=== PATIENT | female | born 1995 | race Caucasian/White ===

== ENCOUNTER 2017-02-28 17:21 | Emergency (ER) | payer OTHER ==
[~2017-02-28] VITALS: Ht 167.6 cm; Wt 53.5 kg
--- NOTE | ~2017-02-28 | US24 ---
[facility]. [facility] A Service of [facility] & [facility] RADIOLOGY TEXT RESULTS PATIENT: LARA PAGE LOCATION: SED : [birth year] UNIT #: [id number] AGE: [address]: Roberto Leon MD SEX: F ORDER DR: [id number] [place] [id number] E MR#: [id number] Acc #: [id number] NAME: LARA PAGE : 1995 SEX: F STUDY DATE/TIME: 02/28/2017 19:01 UNIT: SED ROOM: STUDY DESCRIPTION: US Breast Unilateral Attending Physician: Roberto Leon M.D. Ordering Physician: Meggan Friedman Primary Care Physician: Emi Primary Care Physician MEDICAL IMAGING REPORT This report is preliminary unless electronic signature is present. EXAM Unilateral breast ultrasound 02/28/2017 HISTORY Inflamed area around right nipple breast tissue is red and has hard lump behind nipple x3 days. Green puss and liquid has been coming out of nipple x3 days. Emergency room doctor removed nipple piercings. Patient 12 weeks . FINDINGS Real-time ultrasonography of the right breast performed in the area of palpable abnormality indicated by the patient in the retroareolar region. In the retroareolar region there is a hypoechoic mixed echogenicity collection measuring 2.52 cm x 2.23 cm x 2.24 cm. In the appropriate clinical context, this collection could be consistent with a retroareolar abscess. It does not show internal vascularity. There is some vascularity at its periphery in more normal appearing breast tissue. Please correlate clinically. Followup to complete resolution is recommended. IMPRESSION 1. In the retroareolar right breast in the area of palpable abnormality indicated by the patient there is a hypoechoic collection of overall heterogeneous mixed echogenicity measuring 2.5 cm x 2.3 cm x 2.2 cm. The appearance is nonspecific. Given the patient's history, leading consideration would be retroareolar abscess. Correlate clinically. Followup to complete radiographic resolution strongly recommended. No internal vascularity. There is some peripheral vascularity seen in more normal-appearing breast tissue adjacent to the collection. This might be consistent with a more hyperemic tissue adjacent to abscess collection. STS. [facility] A Service of [facility] & [facility] RADIOLOGY TEXT RESULTS PATIENT: LARA PAGE LOCATION: SED : [birth year] UNIT #: [id number] AGE: [address]: Roberto Leon MD SEX: F ORDER DR: Dictated by... Ramin Rhodes M.D. THIS IS AN ELECTRONICALLY VERIFIED REPORT Ramin Rhodes M.D. at 03/01/2017 2:37 PM GILMA/sue TD: 03/01/2017 05:51 JOB #: [id number] MEDICAL IMAGING REPORT Page 1 of 1
[~2017-02-28 17:21] MED LIST: BACTROBAN15 GM; KEFLEX500 M1 PO; METFORMIN HCL500 M1 PO; PROMETHAZINE D118 ML; ROBITUSSIN A-C S5 ML PO; ZITHROMAX PO
[2017-02-28] MEDS ORDERED: NO MEDICATIONS (17:38)
[2017-02-28] MEDS ORDERED: AMOXICILLIN875 MG PO (21:32)
== END 2017-02-28 21:32 | disposition home or self-care (01) ==
LOC: SED 17:21
DX: S40.811A Abrasion of right upper arm, initial encounter (principal); N61.1 Abscess of the breast and nipple; M25.531 Pain in right wrist; F17.210 Nicotine dependence, cigarettes, uncomplicated; Z23 Encounter for immunization; X58.XXXA Exposure to other specified factors, initial encounter; Y92.89 Other specified places as the place of occurrence of the external cause
CPT/HCPCS: 76641; 90471; 90715; 99283

== ENCOUNTER 2017-03-09 23:38 | Emergency (ER) | payer OTHER ==
[~2017-03-09] VITALS: Ht 167.6 cm; Wt 98.9 kg
[~2017-03-09 23:38] MED LIST changes: +AMOXICILLIN875 MG PO; +NO MEDICATIONS
[2017-03-10 00:22] LABS: URINE SOURCE CLEAN CATCH
[2017-03-10 00:24] LABS: MICRO INDICATED? NO; URINE APPEARANCE CLEAR; URINE BILIRUBIN NEG (NEG); URINE BLOOD NEG (NEG); URINE COLOR YELLOW; URINE GLUCOSE NEG (NORM); URINE KETONE NEG (NEG); URINE LEUKOCYTE ESTERASE NEG (NEG); URINE NITRATE NEG (NEG); URINE PROTEIN NEG (NEG); URINE SPECIFIC GRAVITY >=1.030 (1.003-1.035); URINE UROBILINOGEN 0.2 MG/DL (NORM)
[2017-03-11 21:40] LABS: CHLAMYDIA TRACH Not Detected (Not Detected); N GONOR Not Detected (Not Detected)
== END 2017-03-10 01:49 | disposition home or self-care (01) ==
LOC: SED 23:38
PROVIDERS: Emergency Medicine; Nurse Practitioner
DX: B37.3 Candidiasis of vulva and vagina (principal); S60.222A Contusion of left hand, initial encounter; E11.9 Type 2 diabetes mellitus without complications; F17.210 Nicotine dependence, cigarettes, uncomplicated; X58.XXXA Exposure to other specified factors, initial encounter
CPT/HCPCS: 81003; 82947; 87210; 87491; 87591; 87808; 87905; 99283